=== PATIENT | male | born 1975 | race Caucasian/White ===

== ENCOUNTER 2017-08-19 18:57 | Emergency (ER) | payer BC, OTHER | END 2017-08-19 19:59 | disposition home or self-care (01) | LOC: SCSER 18:57 | DX: S66.911A Strain of unspecified muscle, fascia and tendon at wrist and hand level, right hand, initial encounter (principal); F17.210 Nicotine dependence, cigarettes, uncomplicated; X50.9XXA Other and unspecified overexertion or strenuous movements or postures, initial encounter | CPT/HCPCS: 99282 ==

== ENCOUNTER 2021-09-21 13:10 | Outpatient (CLI) | payer BC ==
[2021-09-21 14:40] LABS: #Basophils 0.1 10x3/uL (0.0-0.2); #Eosinphils 0.1 10x3/uL (0.0-0.5); #Monocytes 0.5 10x3/uL (0.0-1.1); %Eosinophils 2.4 % (0.0-6.0); %Lymphocytes 34.4 % (18.0-47.0); %Monocytes 8.9 % (0.0-10.0); %Neutrophils 52.8 % (40.0-75.0); Hemoglobin 16.5 g/dL (13.5-17.5); Mean Corpuscular HGB CONC 36.2 g/dL (32.0-36.0); Mean Corpuscular Hemoglobin 35.6 pg (27.0-33.0); Mean Corpuscular Volume 98.3 fl (81.2-95.1); Mean Platelet Volume 9.9 fl (7.4-10.4); Platelet Count 214 10x3/uL (150-450); RBC Distribution Width 11.9 % (11.5-14.5); Red Blood Cell (RBC) Count 4.64 10x6/uL (4.32-5.72); White Blood Cell (WBC) Count 5.8 10x3/uL (3.5-10.5)
[2021-09-21 14:57] LABS: Anion Gap 13 mmol/L (10-20); BUN (Urea Nitrogen) 10 mg/dL (8.9-20.6); Calc. Creatinine Clearance 0 mL/min (70-130); Calcium 9.1 mg/dL (7.8-10.44); Carbon Dioxide 24 mmol/L (22-29); Chloride 105 mmol/L (98-107); Estimated GFR 108; Glucose 124 mg/dL (70-105); Potassium 4.1 mmol/L (3.5-5.1); Sodium 138 mmol/L (136-145)
== END 2021-09-21 13:11 | disposition home or self-care (01) ==
LOC: LABBT 13:10
PROVIDERS: ATTEND Specialist
DX: Z01.818 Encounter for other preprocedural examination (principal); K64.4 Residual hemorrhoidal skin tags; K64.8 Other hemorrhoids; Z20.822 Contact with and (suspected) exposure to COVID-19
CPT/HCPCS: 80048; 85025; 87811; 93005; 93010

== ENCOUNTER 2021-10-05 09:29 | Outpatient (CLI) | payer BC | END 2021-10-05 09:30 | disposition home or self-care (01) | LOC: LABBT 09:29 | PROVIDERS: ATTEND Specialist | DX: K64.4 Residual hemorrhoidal skin tags (principal); K64.8 Other hemorrhoids; Z20.822 Contact with and (suspected) exposure to COVID-19 | CPT/HCPCS: 87811 ==

== ENCOUNTER 2021-10-08 08:10 | Day surgery (SDC) | payer BC ==
[2021-10-06 11:33] VITALS: BMI 23.6
[2021-10-08] MEDS ORDERED: Fleet Enema 133 ML BOT PR SCH (08:30)
[2021-10-08] MEDS ORDERED: Acetaminophen 500 MG TAB ONE (08:36)
[2021-10-08] MEDS ORDERED: Ketorolac Tromethamine 30 MG/ML VIAL ONE (08:36)
[2021-10-08] MEDS ORDERED: Bupivacaine/Epinephrine 0.25% 30 ML VIAL ONE (10:53)
[2021-10-08] MEDS ORDERED: Midazolam HCl 2 mg/2 ml Vial ONE (10:55)
[2021-10-08] MEDS ORDERED: fentaNYL Citrate/PF 100 MCG/2 ML SYRINGE ONE ×2 (10:56→11:04)
[2021-10-08] MEDS ORDERED: Lidocaine 2% Jelly 5 ML TUBE ONE (10:56)
[2021-10-08] MEDS ORDERED: CEFAZOLIN 2 GM VIAL ONE (11:01)
[2021-10-08] MEDS ORDERED: Sodium Chloride 0.9% 100 ML ONE (11:01)
[2021-10-08] MEDS ORDERED: Ondansetron PF 4 MG/2 ML Vial ONE (11:17)
[2021-10-08] MEDS ORDERED: Glycopyrrolate 0.2 MG/ML 5 ML SYRINGE ONE (11:17)
[2021-10-08] MEDS ORDERED: Lidocaine 1% MPF 2 ML VIAL ONE (11:17)
[2021-10-08] MEDS ORDERED: Rocuronium Bromide 10 MG/ML (10ML VIAL) ONE (11:17)
[2021-10-08] MEDS ORDERED: PROPOFOL 200 MG/20 ML VIAL ONE (11:17)
[2021-10-08] MEDS ORDERED: Dexamethasone 20 MG/5 ML VIAL ONE (11:17)
[2021-10-08] MEDS ORDERED: Neostigmine Methylsulfate 3 MG/3 ML SYRINGE ONE (11:17)
[2021-10-08] MEDS ORDERED: HYDROcodone/Acetaminophen 5/325 mg Tablet ONE (13:52)
== END 2021-10-08 14:21 | disposition home or self-care (01) ==
LOC: SDC 08:10
PROVIDERS: ATTEND Specialist
PROC: 06BY3ZC Excision of Hemorrhoidal Plexus, Percutaneous Approach (ICD-10-PCS; principal; 2021-10-08)
DX: K64.8 Other hemorrhoids (principal); K64.4 Residual hemorrhoidal skin tags; K57.30 Diverticulosis of large intestine without perforation or abscess without bleeding; Z79.890 Hormone replacement therapy
CPT/HCPCS: J0690; J1100; J1885; J2250; J2405; J2704; J3490